=== PATIENT | female | born 1990 | race Caucasian/White ===

== ENCOUNTER 2021-01-11 08:28 | Day surgery (SDC) | payer OTHER ==
[2021-01-07 16:54] LABS: Absolute Lymphocytes (CBC) 2.3 K/uL (0.7-4.9); Basophils % 0.4 % (0-1.3); Hematocrit 39.8 % (36.0-45.0); Lymphocytes % 44.3 % (15.3-44.8); MPV 9.1 fL (7.6-11.3)
[2021-01-07 17:07] LABS: BUN Blood Urea Nitrogen 15 mg/dL (7-18); Bicarbonate 28 mmol/L (21-32); Glucose Level 93 mg/dL (74-106); Sodium Level 140 mmol/L (136-145)
[2021-01-07 17:11] LABS: ALT/SGPT 20 U/L (12-78); AST/SGOT 9 U/L (15-37); Albumin 4.3 g/dL (3.4-5.0); Alkaline Phosphatase 49 U/L (45-117); Amylase 59 U/L (25-115); Bilirubin Direct < 0.1 mg/dL (0-0.2); Bilirubin Total 0.2 mg/dL (0.2-1.0); Lipase 150 U/L (73-393); Protein, Total 8.3 g/dL (6.4-8.2)
[2021-01-11 08:57] LABS: Specific Gravity 1.025 (1.005-1.030)
[2021-01-11] MEDS ORDERED: Ringers Lactate 1,000 ML IV ONE (09:14)
[2021-01-11] MEDS ORDERED: CEFOXITIN/SWI 1gm 1 GM/10 ML SYR ONE (09:14)
[2021-01-11] MEDS ORDERED: LIDOCAINE 1% MPF 2 ML AMPULE ONE (09:17)
[2021-01-11] MEDS ORDERED: MIDAZOLAM HCL 2 MG/2 ML INJ ONE (09:17)
[2021-01-11] MEDS ORDERED: propofoL 200 MG/20 ML VIAL IV ONE (09:17)
[2021-01-11] MEDS ORDERED: ROCURONIUM 50 MG/5 ML VIAL IV ONE (09:17)
[2021-01-11] MEDS ORDERED: ONDANSETRON 4 MG/2 ML VIAL ONE ×2 (09:17→11:16)
[2021-01-11] MEDS ORDERED: FENTANYL CITR 100 MCG/2 ML ONE (09:17)
[2021-01-11] MEDS ORDERED: BUPIVACA 0.5%/EPI 0.0005%/PF 30 ML VIAL SQ ONE ×2 (09:56)
[2021-01-11] MEDS ORDERED: dexAMETHasone 10 MG/ML VIAL ONE (09:59)
--- NOTE | 2021-01-11 10:16 | P.BOP ---
Preoperative diagnosis: RUQ abd pain, biliary dyskinesia, sympt cholelithiasis Postoperative diagnosis: same Primary procedure: Lap cholecystectomy Senior Escrow Officer: Merline Barros (Luh) Estimated blood loss: <10cc Specimen: gb Findings: as above Anesthesia: General Transferred to: Recovery Room Condition: Good
[2021-01-11] MEDS ORDERED: GLYCOPYRROLATE 0.2 MG/ML SYR ONE (10:30)
[2021-01-11] MEDS ORDERED: KETOROLAC 30 MG/ML INJ ONE (10:30)
[2021-01-11] MEDS ORDERED: NEOSTIGMINE 1 MG/ML -5 ML ONE (10:30)
[2021-01-11] MEDS ORDERED: MORPHINE 4 MG/ML SYR ONE (11:08)
[2021-01-11 11:46] VITALS: TEMP 97
[2021-01-11 12:10] VITALS: BP 112/76; O2SAT 98
[2021-01-11] MEDS ORDERED: CODEINE 30MG/APAP 300MG TAB ONE (13:09)
--- NOTE | 2021-01-25 12:52 | OP ---
Date of Procedure: 01/11/2021 Surgeon: Ming Adames MD Metal Welder: LETTY Hughes. Preoperative Diagnoses: Right upper quadrant abdominal pain, biliary dyskinesia, symptomatic choleli thiasis. Postoperative Diagnoses: Right upper quadrant abdominal pain, biliary dyskinesia, symptomatic cholel ithiasis. Procedure: Laparoscopic cholecystectomy. Estimated Blood Loss: Less than 10 mL. Specimen: Gallbladder. Anesthesia: General plus local. Indication: This is the case of a female, who comes to us with above diagnosis. Fully explained the benefits, alternatives, and risks of laparoscopic possible open cholecystectomy, which include, but not limited to infection, bleeding, damage to adjacent structures, anesthesia complication, choledoch olithiasis, bile leak, pancreatitis, OR, and even . She also understands this may not relieve a ny symptoms. She might need more than one surgical intervention. She understood, signed a consent. Procedure In Detail: The patient was brought to the operating room, placed in supine position. Anes thesia was done without complication. Abdominal area was prepped and draped in usual sterile fashion . Marcaine 0.5% was injected for local anesthetic followed by sharp incision of the skin in the justin umbilical region. Incision was carried down to fascia, which was opened under direct vision. Perito neum was encountered, opened under direct vision. Vicryl #1 placed inside the fascia. Terrence trocar was carefully introduced. Pneumoperitoneum was obtained. I placed 3 more trocars, 5 mm each one of them, 1 in the epigastric and 2 in the right upper quadrant using same technique, which consisted of local anesthetic, sharp incision of the skin and introduction of the trocars under direct vision. T his allowed me to put a grasper in the fundus of the gallbladder and another grasper in the infundibu lum retracting the gallbladder in the inferolateral fashion, exposing the triangle of Calot and obtai milagros critical view of safety. Cystic duct and cystic artery were clearly isolated, freed circumferen tially and a connection between those and the gallbladder were clearly identified. I proceeded to li gate those by using at least 3 clips proximal, 1 clip distal, ligation in middle. Same was done with the cystic artery. No bile leak, no bleeding. The gallbladder was removed from liver using the Bov ie cauterizer and removed from abdominal cavity using EndoCatch through the umbilical incision. The area was inspected once again. No bile leak, no bleeding. At that moment, I proceeded to remove the trocars under direct vision. Deflated the pneumoperitoneum. Closed the fascia with #1 Vicryl. Irr igated subcutaneous tissue, closed with 3-0 chromic and skin was approximated. Sponge count and inst rument counts correct. The patient tolerated the procedure well. The patient was sent to recovery i n stable condition. HM/MODL Voice ID: [id number] Report ID: [id number]
--- NOTE | 2021-01-25 12:57 | DS ---
Date of Discharge: 01/11/2021 Diagnoses: Right upper quadrant abdominal pain, biliary dyskinesia, symptomatic cholelithiasis. Procedure: Laparoscopic cholecystectomy. Disposition: Home. Discharge Instructions: Activity as tolerated. No heavy lifting. Followup in my office in 1 week. Call for appointment at [phone]. Keep area dry for 48 hours, then may shower. Keep Steri-Strips i ntact. SAGE/WILFRIDO Voice ID: [id number] Report ID: [id number]
== END 2021-01-11 13:15 | disposition home or self-care (01) ==
LOC: OR 08:28
PROVIDERS: ATTEND Surgery
PROC: 0FT44ZZ Resection of Gallbladder, Percutaneous Endoscopic Approach (ICD-10-PCS; principal; 2021-01-11 09:30)
DX: K80.10 Calculus of gallbladder with chronic cholecystitis without obstruction (principal); K82.8 Other specified diseases of gallbladder; R10.11 Right upper quadrant pain; Z20.822 Contact with and (suspected) exposure to COVID-19
CPT/HCPCS: 85025; 80048; 36415; 82150; 81025; 80076; 88304; 83690; 47562; U0003; J2704; J2250; J3010; J1100; J2710; J7120; J2405 ×2

== ENCOUNTER 2023-05-07 01:52 | Emergency (ER) | payer OTHER ==
--- OUTSIDE RECORDS SUMMARY | 2023-05-07 01:55 | XMS REPORT | Continuity of Care Document ---
:1990 Author Organization [facility] t Address [address] [place] [address] [place] [id number] Care Team Providers Name Role Phone Estephania Wilder MD Primary Care Physician Estephania Wilder MD Attending Clinician ESTEPHANIA WILDER Attending Clinician Unavailable AMBREEN_ELEANOR Attending Clinician Unavailable Sharifa_Kyleigh Attending Clinician Unavailable Zuniga_Raven Attending Clinician Unavailable Shield Attending Clinician Unavailable Leeann_Isela Attending Clinician Unavailable ESTEPHANIA WILDER Admitting Clinician Unavailable AMBREENRENETTA Admitting Clinician Unavailable Sharifa_Kyleigh Admitting Clinician Unavailable Zuniga_F Admitting Clinician Unavailable Shield Admitting Clinician Unavailable Leeann_M Admitting Clinician Unavailable Payers Payer Name Policy Type Policy Number Effective Date Expiration Date S ourlakhwinder [employer]ET[employer] CHOICE POS [id number] 2015 00:00:00 II [employer]ET[employer] - CHOICE [id number] 2015 00:00:00 (POS II) [employer]ET[employer] - NAP [id number] 2015 00:00:00 Problems Condition Condition Condition Status Onset Resolution Last Treating Co mments Source Name Details Category Date Date Treatment Clinician Date 37 weeks 37 weeks Disease Active [facility] di gestation gestation 8- st of of 00:00: Hospita 00 l False False Disease Active [facility] labor labor 825 st after 37 after 37 00:00: Hospit a weeks of weeks of 00 l gestation gestation without without delivery delivery 39 weeks 39 weeks Disease Active [facility] di gestation gestation 8-03 st of of 00:00: Hospita 00 l Nausea Nausea Problem Active [facility] 05-04 da 00:00: [facility] 00 Group COVID-19 Covid-19 Problem Active [facility] 05[facility]04 [facility] 00:00: [facility] 00 Group Sprain of Sprain of Problem Active [facility] wrist Wrist [facility] Wound of Wound of Problem Active [facility] skin Skin [facility] Laceration Laceration Problem Active [facility] of finger of Finger [facility] Allergies, Adverse Reactions, Alerts Allergy Allergy Status Severity Reaction(s) Onset Inactive Treating Comm ents Source Name Type Date Date Clinician Prometha Propensi Active GI Method i zine ty to Intolerance 05-05 st adverse 00:00: Hospita reaction 00 l s to drug Codeine Propensi Active Hives Chest [facility] ty to 8-[address] adverse 00:00: Hospita reaction 00 l s to drug Sulfa Propensi Active GI [facility] (Sulfona ty to Intolerance 03 st mide adverse 00:00: Hospita Antibiot reaction 00 l ics) s to drug SULFA Allergy Active [facility] (SULFONA to da MIDE substanc Medical ANTIBIOT e Group ICS) Family History Family Member Diagnosis Comments Start Date Stop Date Source Natural father [facility] Natural [facility] An[facility] Depression [facility] Natural mother Glaucoma [facility] Social History Social Habit Start Date Stop Date Quantity Comments Source ASSERTION 2022-08-30 [facility] History of tobacco Current smoker [facility] Gender identity [facility] Sexual orientation [facility] Tobacco use and 2023-05-05 2023-05-05 Smokeless [facility] exposure 00:00:00 00:00:00 tobacco non-user Hospital Alcohol intake 2023-05-05 2023-05-05 Ex-drinker [facility] 00:00:00 00:00:00 (finding) Hospital History of Social 2023-05-05 2023-05-[address] function 00:00:00 00:00:00 Hospital Sex Ass[birth year] At [birth year] F [facility] 00:00:00 00:00:00 Hospital Smoking Status Start Date Stop Date Source Ex-smoker 2023-05-05 00:00:00 2023-05-05 00:00:00 [facility] Medications Ordered Filled Start Stop Current Ordering Indication Dosage Frequency Signature Comments Components Source Medication Medication Date Date Medication? Clinician (SIG) Name Name albuterol 2022- No 2{puff} Q4H Inhale 2 [facility] 90 8-26 08-[address] mcg/actuati 22:32: 00:00 every 4 Ho spita on inhaler 00 :00 (four) l hours as needed. levothyroxi 2022- levothyrox [facility] ne 05-06 08-[address] (SYNTHROID) 22:32: 00:00 tablet Hos sumeet 25 mcg 00 :00 l tablet valACYclovi Yes 500mg Q.5D Take 500 M ethodi r (VALTREX) 8-[address] 500 MG 22:33: mouth 2 Hospita tablet 02 (two) l times a day. ferrous Yes 325mg QD Take 325 Meth[facility] di sulfate 325 8-[address] (65 FE) MG 22:33: mouth Hospit a tablet 02 daily with l breakfast. Yes 1{tbl} QD Take 1 [facility] di vit,calc76- 8-[address] iron-folic 22:33: mouth Hospit a 29 mg iron- 02 daily. l 1 mg tablet per tablet albuterol albuterol No 2puff(s Q4H albuterol [facility] sulfate HFA sulfate HFA ) sulfate da 90 90 HFA 90 Medical mcg/actuati mcg/actuati mcg/actuat Group on aerosol on aerosol ion inhaler inhaler aerosol Inhale 2 Inhale 2 inhaler puffs every puffs every Inhale 2 4 hours by 4 hours by puffs inhalation inhalation every 4 route as route as hours by needed. needed. inhalation route as needed. ondansetron ondansetron No 1 Q4H ondansetro [facility] 4 mg 4 mg n 4 mg da disintegrat disintegrat disintegra Medical ing tablet ing tablet ting Karlos up Place 1 Place [address] 1 every 4 every 4 tablet hours by hours by every 4 translingua translingua hours by l route as l route as translingu needed. needed. al route as needed. Symbicort Symbicort No 2puff(s BID Symbicort [facility] 160 mcg-4.5 160 mcg-4.5 ) 160 d a mcg/actuati mcg/actuati mcg-4.5 Medical on HFA on HFA mcg/actuat Group aerosol aerosol ion HFA inhaler inhaler aerosol Inhale 2 Inhale 2 inhaler puffs twice puffs twice Inhale 2 a day by a day by puffs inhalation inhalation twice a route. route. day by inhalation route. Immunizations Ordered Immunization Filled Immunization Date Status Commen ts Source Name Name Tdap Tdap 2016-01-05 Completed [place] 12:30:00 [facility] Vital Signs Vital Name Observation Time Observation Value Comments Source BP Diastolic 2021-05-04 00:00:00 81 mm[Hg] [facility] Height 2021-05-04 00:00:00 58.5 [in_i] [facility] BMI (Body Mass 2021-05-04 00:00:00 18.2 [facility]/m2 [facility] BP Systolic 2021-05-04 00:00:00 118 mm[Hg] [facility] Body Weight 2021-05-04 00:00:00 1417.6 [oz_av] [facility] BP Diastolic 2021-04-24 00:00:00 92 mm[Hg] [facility] Height 2021-04-24 00:00:00 58.5 [in_i] [facility] BMI (Body Mass 2021-04-24 00:00:00 18.4 kg/m2 [facility] BP Systolic 2021-04-24 00:00:00 119 mm[Hg] [facility] Body Weight 2021-04-24 00:00:00 1436.8 [oz_av] [facility] BP Diastolic 2021-02-03 00:00:00 79 mm[Hg] [facility] Height 2021-02-03 00:00:00 58.5 [in_i] [facility] BMI (Body Mass 2021-02-03 00:00:00 19.3 kg/m2 [facility] BP Systolic 2021-02-03 00:00:00 113 mm[Hg] [facility] Body Weight 2021-02-03 00:00:00 1506 [oz_av] [facility] Body Weight 2020-12-07 00:00:00 1518.4 [oz_av] [facility] BP Diastolic 2020-12-07 00:00:00 83 mm[Hg] [facility] Height 2020-12-07 00:00:00 58.5 [in_i] [facility] BMI (Body Mass 2020-12-07 00:00:00 19.5 kg/m2 [facility] BP Systolic 2020-12-07 00:00:00 114 mm[Hg] [facility] Height 2020-07-21 00:00:00 59 [in_i] [facility] BMI (Body Mass 2020-07-21 00:00:00 21.2 kg/m2 [facility] Body Weight 2020-07-21 00:00:00 1680 [oz_av] [facility] BP Diastolic 2020-05-19 00:00:00 91 mm[Hg] [facility] Height 2020-05-19 00:00:00 59 [in_i] [facility] BMI (Body Mass 2020-05-19 00:00:00 20 kg/m2 [facility] BP Systolic 2020-05-19 00:00:00 123 mm[Hg] [facility] Body Weight 2020-05-19 00:00:00 1588 [oz_av] [facility] BP Diastolic 2019-01-23 00:00:00 81 mm[Hg] [facility] Height 2019-01-23 00:00:00 59 [in_i] [facility] BMI (Body Mass 2019-01-23 00:00:00 22 kg/m2 [facility] BP Systolic 2019-01-23 00:00:00 114 mm[Hg] [facility] Body Weight 2019-01-23 00:00:00 1744 [oz_av] [facility] BP Diastolic 2018-10-09 00:00:00 79 mm[Hg] [facility] Height 2018-10-09 00:00:00 59 [in_i] [facility] BMI (Body Mass 2018-10-09 00:00:00 22 kg/m2 [facility] BP Systolic 2018-10-09 00:00:00 110 mm[Hg] [facility] Body Weight 2018-10-09 00:00:00 1744 [oz_av] [facility] Systolic blood 2023-05-05 23:05:00 113 mm[Hg] [facility] pressure Diastolic blood 2023-05-05 23:05:00 77 mm[Hg] [facility] pressure Heart rate 2023-05-05 23:05:00 106 /min [facility] Body temperature 2023-05-05 23:05:[address] [facility] Respiratory rate 2023-05-05 23:05:00 17 /min [facility] Body height 2023-05-05 23:05:[address] [facility] Body weight 2023-05-05 23:05:[address] [facility] BMI 2023-05-05 23:05:00 26.75 kg/m2 [facility] Procedures Procedure Date / Time Performed Performing Clinician Sourc e XR, chest, 1 view 2020-05-19 00:00:00 [facility] Plan of Care Planned Activity Planned Date Details Comments Source Future Appointment 2023-05-23 Estephania Wilder MD, [address] [facility] [place] 01:00:00 [place] [address] Instructions [facility] Encounters Start End Encounter Admission Attending Care Care Encounter Source Date/Time Date/Time Type Type Clinicians Facility Department ID 2023-01-30 Outpatient [facility] [id number] [place] 07:28:30 [id number] [facility] 2023-01-03 Outpatient [facility] [id number] [place] 10:22:57 [id number] [facility] 2023-05-05 2023-05-05 Hospital Wilder, [id number] [facility] 17:47:00 22:32:00 Encounter Estephania C. [id number] s t [id number] Hospit [id number] l .8 2023-05-05 2023-05-05 Emergency [facility] 001 [id number] [place] 00:00:00 00:00:00 ESTEPHANIA [address] 2023-01-03 2023-02-01 Outpatient WILDER, FB FB [id number] FB 10:13:00 23:59:00 ESTEPHANIA 2022-12-29 2022-12-29 Outpatient AMBREEN_FAR [facility] [id number] [place] 00:00:00 00:00:00 HANA [facility]20 [facility] 2022-04-13 2022-04-15 Inpatient [facility] 001 [id number] 94 [place] 00:00:00 00:00:00 ESTEPHANIA [address] 2022-01-04 2022-01-04 [facility] 695 [place] 01:57:00 01:57:00 dquist 0426 [facility] 2021-11-29 2021-12-28 Outpatient [facility], FB FB [id number] FB 09:15:00 23:59:00 ESTEPHANIA 2021-05-04 2021-05-04 Arlene Baum [facility] [place] [place] [place] [place] - [id number] [place] 00:00:00 00:00:00 Iliana Damon 0824 Elieso Valenzuela Medical AUTO WINDER: [address] [facility] [address], [place] [address] , Ph. 2021-04-24 2021-04-24 Kadeem Baum [facility] [place] [place] - [id number] 21 [place] 00:00:00 00:00:00 Jeremy Damon 0814 Eliseo Tompkins Medical MD: [address] [place] [address], [place] [address] , Ph. 2021-02-03 2021-02-03 [place] - [id number] [place] 00:00:00 00:00:00 Discovery Alma 0526 zheng AUTO WINDER: [address] [place] [address], [place] [address] , Ph. 2020-12-08 2020-12-08 Outpatient Hawtramaine_M MMG MMG [id number] [place] 07:22:00 07:22:00 0330 zheng [facility] 2020-12-07 2020-12-07 Arlene Penningtontramaine_[place] - [id number] 21 [place] 00:00:00 00:00:00 Iliana Damon 0329 Eliseo Valenzuela Medical AUTO WINDER: [address] [place] [address], [place] [address] , Ph. 2020-07-29 2020-07-29 Outpatient Shield MMG MMG [id number] [place] 02:29:00 02:29:00 1118 zheng [facility] 2020-07-21 2020-07-21 Ar[place] - [id number] [place] 00:00:00 00:00:00 Iliana Damon 1110 Eliseo Valenzuela Medical AUTO WINDER: [address] [place] [address], [place] [address] , Ph. 2020-05-19 2020-05-19 Sel[place] - [id number] [place] 00:00:00 00:00:00 Discovery Alma 0908 da AUTO WINDER: [address] [place] [address] , Ph. 2020-05-17 2020-05-17 Outpatient Shield MMG MMG [id number] [place] 04:36:00 04:36:00 0906 zheng [facility] 2020-01-16 2020-01-16 Outpatient [facility] [id number] [place] 12:58:00 12:58:00 0507 zheng [facility] 2019-01-23 2019-01-23 [place] - [id number] [facility] 00:00:00 00:00:00 Discovery Alma 0515 da AUTO WINDER: [address] [facility] [address], [place] [address] , Ph. 2018-10-09 2018-10-09 [place] - [id number] [facility] 00:00:00 00:00:00 Alma 0129 da AUTO WINDER: [address] [facility] [place] [facility] [address], [place] [address] , Ph. Results Test Description Test Time Test Comments Results Result Comments Source SARS-CoV-2 (COVID-19) RNA [Presence] in Respiratory sp ecimen by 2022-04-13 05:41:27 GABRIELLA with probe detection Test Item Value Reference Range Interpretation Comme nts SARS-CoV-2 (COVID-19) RNA [Presence] in Respiratory specimen by Not detected GABRIELLA with probe detection (test code = 88853-3) Whether patient is employed in a healthcare setting (test code = Un known 68737-6) Whether the patient has symptoms related to condition of interest U nknown (test code = 04156-8) Whether the patient was hospitalized for condition of interest Unkn own (test code = 61543-4) Whether the patient was admitted to intensive care unit (ICU) for U nknown condition of interest (test code = 74993-1) Whether patient resides in a congregate care setting (test code = U nknown 39198-1) status (test code = 67476-7) Unknown Date and time of symptom onset (test code = 34889-7) Unknown [facility] (COVID-19) Ag [Presence] in Respiratory specimen by Rapid [id number] 15:34:00 Test Item Value Reference Range Interpretation Comments SARS-CoV - 2 (test code = SARS-CoV - negative 2) [facility], [id number] 15:34:00 Test Item Value Reference Range Interpretation Comments Strep Result (test code = Strep negative Result) [facility]2021-02-03 15:34:00 Test Item Value Reference Range Interpretation Comments Flu (test code = Flu) negative [facility]
[2023-05-07 02:33] LABS: Absolute Lymphocytes (CBC) 2.1 K/uL (0.7-4.9); Hematocrit 39.1 % (36.0-45.0); Lymphocytes % 24.4 % (15.3-44.8); MCV 87.7 fL (80-100); MPV 7.6 fL (7.6-11.3); Platelets 218 thou/uL (152-406); RBC Red Blood Cell Count 4.46 M/uL (3.86-4.86)
[2023-05-07 02:49] LABS: Potassium 3.5 mEq/L (3.5-5.1)
--- NOTE | 2023-05-07 03:02 | EDPHYS ---
Physician Documentation [facility] Name: Mayi Pritchett Age: 33 yrs Sex: Female : 1990 Arrival Date: 05/07/2023 Time: 01:52 Bed 1 Private MD: ED Physician Omar Lamas HPI: 05/07 02:21 This 33 yrs old Female presents to ER via Wheelchair with complaints of 37 weeks ms3 3min apart contractions. 02:21 33-year-old female with no past medical history, presents for contractions that ms3 are 3 minutes apart. Patient states her pain is moderate with contractions. Patient denies alleviating or inciting factors. Patient denies vaginal bleeding, loss of fluid. Patient states she has had care by Dr. Wilder in [place].. Historical: - Allergies: 02:09 Sulfa (Sulfonamide Antibiotics); ap3 02:09 Promethazine; ap3 02:09 hydrocodone; ap3 - PMHx: 02:09 None; ap3 - Social history:: Smoking status: Patient denies any tobacco usage or history of. ROS: 02:21 Constitutional: Negative for fever, and chills. Neck: Negative for injury, pain, and ms3 swelling, Cardiovascular: Negative for chest pain, and palpitations. Respiratory: Negative for shortness of breath, cough, wheezing, and pleuritic chest pain. 02:21 Abdomen/GI: Positive for Contractions. 02:21 All other systems are negative. Exam: 02:21 Constitutional: This is a well developed, well nourished patient who is awake, alert, ms3 and in no acute distress. Head/Face: Normocephalic, atraumatic. Neck: Trachea midline, no cervical lymphadenopathy. Supple, full range of motion without nuchal rigidity, or vertebral point tenderness. No Meningismus. Chest/axilla: Normal chest wall appearance and motion. Nontender with no deformity. Cardiovascular: Regular rate and rhythm with a normal S1 and S2. No gallops, murmurs, or rubs. Normal PMI, no JVD. No pulse deficits. Respiratory: Lungs have equal breath sounds bilaterally, clear to auscultation and percussion. No rales, rhonchi or wheezes noted. No increased work of breathing, no retractions or nasal flaring. 02:21 Abdomen/GI: Inspection: gravid appearance, is noted, Bowel sounds: normal, Palpation: abdomen is soft and non-tender, Rectal exam: 02:21 : Pelvic Exam: the nurse was present for the exam, 9 cm, cervix effaced , Gravid exam: Fundal height: consistent with gestational age, Cervical size: the cervix is dilated to approximately 9 cm(s), Effacement: the cervix is 100 % effaced, Station: - 2, Presentation: the presentation is consistent with cephalic-vertex, heart tones: 128 beats/min. Vital Signs: 02:06 BP 141 / 83; Pulse 104; Resp 19; Temp 98.4; Pulse Ox 100% ; Pain 10/10; ap3 02:06 Pain Scale: Adult ap3 MDM: 01:58 Patient medically screened. ms3 02:21 Differential diagnosis: delivery of infant. ms3 02:58 Differential diagnosis: delivery of . Data reviewed: vital signs, nurses notes. [facility] 02:58 Management of patient was discussed with the following: Financial Planning Assistant: Dr. Marx, OB at [facility]. . 03:01 Management of patient was discussed with the following: Dr. Lamas spoke with Dr. Marx at [facility] [address] Marx accepted pt at 0215. Counseling: I had a detailed discussion with the patient and/or guardian regarding the historical points, exam findings, and any diagnostic results supporting the discharge/admit diagnosis, the need to transfer to another facility, [facility] does not immediately have the required specialist. Response to treatment: There is no appreciated change of the patient's symptoms at this time. Special discussion:. 04:46 ED course: Dr Marx from [facility] called and patient did well and baby has been delivered.. ms3 05/07 02:14 Order name: CBC with Diff; Complete Time: 02:44 ms3 05/07 02:14 Order name: BMP; Complete Time: 03:03 ms3 05/07 02:14 Order name: Type And Screen ms3 Administered Medications: No medications were administered Disposition: 04:48 Chart complete. ms3 Disposition Summary: 05/07/23 03:01 Transfer Ordered Transfer Location: [facility] snw Reason: Specialty snw Condition: Stable snw Problem: an ongoing problem snw Symptoms: are unchanged snw Accepting Physician: Dr. Marx (05/07/23 03:03) kl Diagnosis - Precipitate labor snw Forms: - Medication Reconciliation Form snw - SBAR form snw Signatures: Dispatcher [employer] Ines Noble, RN RN Karol Lerner, TRACK EQUIPMENT OPERATORTeofiloC TRACK EQUIPMENT OPERATOR-Steph Thacker RN RN ap3 Sims, Marcus, DO DO ms3 Corrections: (The following items were deleted from the chart) 03:03 03:01 Dr. Francisco J akersw 04:48 04:48 Co-signature as Attending Physician, Omar Lamas DO ms3 ms3 04:49 03:01 Counseling: I had a detailed discussion with the patient and/or guardian ms3 regarding the historical points, exam findings, and any diagnostic results supporting the discharge/admit diagnosis, the need to transfer to another facility, [facility] does not immediately have the required specialist, snw
--- NOTE | 2023-05-07 03:02 | ER ---
Nurse's Notes [facility] Name: Mayi Pritchett Age: 33 yrs Sex: Female : 1990 Arrival Date: 05/07/2023 Time: 01:52 Bed 1 Private MD: Diagnosis: Precipitate labor Presentation: 05/07 02:06 Chief complaint: Patient states: she is 37 weeks and has been ana luisa ap3 since yesterday, and her contractions are now 3 mins apart. patient reports she went to the hospital yesterday but was sent home due to slow progression. Patient reports her pain to be a 10/10 on the pain scale. patient reports this is her 4th , and she has had care with no complications. Coronavirus screen: At this time, the client does not indicate any symptoms associated with coronavirus-19. Ebola Screen: No symptoms or risks identified at this time. Initial Sepsis Screen: Does the patient meet any 2 criteria? No. Patient's initial sepsis screen is negative. Does the patient have a suspected source of infection? No. Patient's initial sepsis screen is negative. Risk Assessment: Do you want to hurt yourself or someone else? Patient reports no desire to harm self or others. Onset of symptoms. 02:06 Method Of Arrival: Wheelchair ap3 02:06 Acuity: CHUY 2 ap3 Triage Assessment: 02:10 General: Appears uncomfortable, Behavior is calm, appropriate for age. Pain: Complains ap3 of pain in abdomen and pelvis. Neuro: Level of Consciousness is awake, alert, obeys commands, Oriented to person, place, time, situation. Cardiovascular: Patient's skin is warm and dry. Respiratory: Airway is patent Respiratory effort is even, unlabored, Respiratory pattern is regular, symmetrical. : Reports contractions, and a 37weeks . Historical: - Allergies: 02:09 Sulfa (Sulfonamide Antibiotics); ap3 02:09 Promethazine; ap3 02:09 hydrocodone; ap3 - PMHx: 02:09 None; ap3 - Social history:: Smoking status: Patient denies any tobacco usage or history of. Screenin:11 Abuse screen: Denies threats or abuse. Nutritional screening: No deficits noted. ap3 Tuberculosis screening: No symptoms or risk factors identified. Assessment: 02:20 Reassessment: pt left by EMS. Vital Signs: 02:06 BP 141 / 83; Pulse 104; Resp 19; Temp 98.4; Pulse Ox 100% ; Pain 10/10; ap3 02:06 Pain Scale: Adult ap3 ED Course: 01:55 Patient arrived in ED. kj1 01:58 Omar Lamas DO is Attending Physician. ms3 02:09 Triage completed. ap3 02:11 Arm band placed on right wrist. ap3 02:11 Patient has correct armband on for positive identification. Bed in low position. Call ap3 light in reach. Side rails up X2. Adult w/ patient. Pulse ox on. NIBP on. 02:12 Inserted saline lock: 20 gauge in left antecubital area, using aseptic technique. Blood ap3 collected. 02:13 Assist provider with pelvic exam: Patient tolerated well. ap3 02:19 Initial lab(s) drawn, by me, sent to lab. ap3 02:20 Type And Screen Sent. ap3 02:20 BMP Sent. ap3 02:20 CBC with Diff Sent. ap3 Administered Medications: No medications were administered Medication: 02:11 VIS not applicable for this client. ap3 Outcome: 02:44 Transferred by ground EMS to [facility]. kl 02:44 Condition: stable 02:44 Discharge instructions given to patient, Instructed on the need for admit, Demonstrated understanding of instructions. 03:01 ER care complete, transfer ordered by . vargas 03:03 Patient left the ED. kl Signatures: Ines Marr RN RN kl Waters, Shelly, BUSINESS INFORMATION ANALYST-C BUSINESS INFORMATION ANALYST-CsnSteph Bose RN RN ap3 Ariana Sorto kj1 Omar Lamas DO DO ms3
[2023-05-07 03:22] VITALS: BP 141/83; TEMP 98.4; O2SAT 100
== END 2023-05-07 03:03 | disposition short-term general hospital (02) ==
LOC: ER 01:52
DX: O62.3 Precipitate labor (principal)
CPT/HCPCS: 36415; 80048; 85025; 86850; 86900; 86901; 99285